=== PATIENT | male | born 1975 | race Caucasian/White ===

== ENCOUNTER → 2020-08-22 | Day surgery (SDC) | payer OTHER ==
[~2020-08-22] MED LIST: Bupivacaine 0.5% 30 ML SDV ONE; Dexamethasone 4 MG/ML 5 ML MDV ONE; Glycopyrrolate 0.2 MG/ML SDV ONE; Lactated Ringers 1,000 ML IV SCH; Lidocaine 1% 20 ML MDV ONE; Midazolam 1 MG/ML 2 ML SDV ONE; Ondansetron 4 MG/2 ML SDV ONE; Propofol 200 MG/20 ML SDV ONE; Sodium Chloride 0.9% 10 ML SDV IV PRN; Sodium Chloride 0.9% 10 ML Syringe FLUSH PRN; Sodium Chloride 0.9% 2.5 ML Syringe FLUSH PRN; ceFAZolin 2 GM in Premix Bag 1 BAG IV ONE; fentaNYL 100 MCG/2 ML SDV ONE
--- NOTE | 2020-08-22 08:28 | PCM.PREANE ---
Preanesthetic Assessment - Anesthesia/Transfusion/Family Hx Anesthesia History: Prior Anesthesia Without Reaction Family History of Anesthesia Reaction: No Transfusion History: No Prior Transfusion(s) - Review of Systems General: No Symptoms Pulmonary: No Symptoms Cardiovascular: No Symptoms Gastrointestinal: No Symptoms Neurological: No Symptoms Other: Reports: None - Physical Assessment NPO Status Date: 08/22/20 NPO Status Time: 00:05 Vital Signs: Last Vital Signs Temp 96.4 F L 08/22/20 07:52 Pulse 76 08/22/20 07:52 Resp 15 08/22/20 07:52 BP 124/85 08/22/20 07:52 Pulse Ox 97 08/22/20 07:52 Height: 6 ft 2 in Weight: 280 lb ASA Class: 2 Mental Status: Alert & Oriented x3 Airway Class: Mallampati = 2 Dentition: Reports: Normal Dentition ROM/Head Extension: Limited/Partial Lungs: Clear to Auscultation, Normal Respiratory Effort Cardiovascular: Regular Rate, Regular Rhythm - Lab Values: Laboratory Last Values SARS-CoV-2 RNA (RAFY) NEGATIVE (NEGATIVE) 08/22/20 06:55 - Allergies Allergies/Adverse Reactions: Allergies Allergy/AdvReac Type Severity Reaction Status Date / Time No Known Allergies Allergy Verified 08/16/20 10:27 - Anesthesia Plan Pre-Op Medication Ordered: None - Acknowledgements Anesthesia Type Planned: General Anesthesia Pt an Appropriate Candidate for the Planned Anesthesia: Yes Alternatives and Risks of Anesthesia Discussed w Pt/Guardian: Yes Pt/Guardian Understands and Agrees with Anesthesia Plan: Yes Additional Comments: no food today abt 12 oz apple juice 0630 barbara w cpap elodia depression tob chew tob only etoh occ obesity bmi 36 par no questions PreAnesthesia Questionnaire HEENT History: Reports: None Respiratory History: Reports: Sleep Apnea Other Respiratory History: uses CPAP every night Gastrointestinal History: Reports: GERD Musculoskeletal History: Reports: Back Pain, Chronic, Fracture Other Musculoskeletal History: hx of "cracked" right elbow as a child Neurological History: Reports: Concussion, Migraines Psychiatric History: Reports: Depression Endocrine/Metabolic History: Reports: Hypothyroidism, Obesity/BMI 30+ Dermatologic History: Reports: Other (See Below) Other Dermatologic History: currently has a rash on the back of his neck - Past Surgical History Head Surgeries/Procedures: Reports: None HEENT Surgical History: Reports: Oral Surgery Other HEENT Surgeries/Procedures: wisdom teeth removed - SUBSTANCE USE Tobacco Use Status *Q: Current Every Day Tobacco User Tobacco Use Within Last Twelve Months: Snuff/Dip Recreational Drug Use History: No - HOME MEDS Home Medications: Home Meds Cartilage/Collagen/Bor/Hyalur [Joint Health Tablet] 1 tab PO DAILY 08/16/20 [History] Escitalopram Oxalate [Lexapro] 40 mg PO BEDTIME 08/16/20 [History] Esomeprazole [NexIUM] 20 mg PO DAILY 08/16/20 [History] Fish Oil/[place]-3 Fatty Acids [Fish Oil 1,000 MG] 1 gm PO DAILY 08/16/20 [History] Levothyroxine Sodium [Levothyroxine] 100 mcg PO BEDTIME 08/16/20 [History] Mens Multivitamin 1 tab PO DAILY 08/16/20 [History] - CURRENT (IN HOUSE) MEDS Current Meds: Current Medications Lactated Ringer's (Ringers, Lactated) 1,000 mls @ 125 mls/hr IV ASDIRECTED DICK Last Admin: 08/22/20 08:00 Dose: 125 mls/hr Documented by: Sodium Chloride (Sodium Chloride 0.9% 2.5 Ml Syringe) 2.5 ml FLUSH ASDIRECTED PRN PRN Reason: Keep Vein Open Sodium Chloride (Sodium Chloride 0.9% 10 Ml Sdv) 10 ml IV ASDIRECTED PRN PRN Reason: IV Use Sodium Chloride (Sodium Chloride 0.9% 10 Ml Syringe) 10 ml FLUSH ASDIRECTED PRN PRN Reason: Keep Vein Open Discontinued Medications Dexamethasone (Dexamethasone 4 Mg/Ml 5 Ml Mdv) Confirm Administered Dose 20 mg .ROUTE .STK-MED ONE Stop: 08/22/20 07:41 Fentanyl (Fentanyl 100 Mcg/2 Ml Sdv) Confirm Administered Dose 100 mcg .ROUTE .STK-MED ONE Stop: 08/22/20 07:41 Cefazolin Sodium/Dextrose 2 gm (/ Premix) 50 mls @ 100 mls/hr IV ONETIME ONE Stop: 08/19/20 09:11 Midazolam HCl (Midazolam 1 Mg/Ml 2 Ml Sdv) Confirm Administered Dose 2 mg .ROUTE .STK-MED ONE Stop: 08/22/20 07:41 Ondansetron HCl (Ondansetron 4 Mg/2 Ml Sdv) Confirm Administered Dose 4 mg .ROUT E .STK-MED ONE Stop: 08/22/20 07:42 Propofol (Propofol 200 Mg/20 Ml Sdv) Confirm Administered Dose 200 mg .ROUTE .STK-MED ONE Stop: 08/22/20 07:41
--- NOTE | 2020-08-22 11:32 | PCM.OPNOTE ---
- General Post-Op/Procedure Note Date of Surgery/Procedure: 08/22/20 Operative Procedure(s): excision left lower leg posterior calf lipoma Findings: 7.6 x 6 x 2 cm lipoma just under the left knee overlying the proximal posterior calf Pre Op Diagnosis: Lower leg lipoma Post-Op Diagnosis: same Anesthesia Technique: General LMA Primary Surgeon: Deyanira Jackson Pathology: lipoma EBL in mLs: 10 Condition: Good
--- NOTE | 2020-08-22 12:00 | PCM.POSTAN ---
POST ANESTHESIA ASSESSMENT - MENTAL STATUS Mental Status: Alert, Oriented - VITAL SIGNS Vital Signs: Last Vital Signs Temp 98.4 F 08/22/20 11:23 Pulse 83 08/22/20 11:53 Resp 20 08/22/20 11:53 BP 116/72 08/22/20 11:53 Pulse Ox 95 08/22/20 11:53 - RESPIRATORY Respiratory Status: Respiratory Rate WNL, Airway Patent, O2 Saturation Stable - CARDIOVASCULAR CV Status: Pulse Rate WNL, Blood Pressure Stable - GASTROINTESTINAL GI Status: No Symptoms - POST OP HYDRATION Hydration Status: Adequate & Stable
--- NOTE | 2020-08-22 12:25 | PCM48HPAN ---
Post Anesthesia Note - EVALUATION WITHIN 48HRS OF ANESTHETIC Vital Signs in Normal Range: Yes Patient Participated in Evaluation: Yes Respiratory Function Stable: Yes Airway Patent: Yes Cardiovascular Function Stable: Yes Hydration Status Stable: Yes Pain Control Satisfactory: Yes Nausea and Vomiting Control Satisfactory: Yes Mental Status Recovered: Yes Vital Signs: Last Vital Signs Temp 98.4 F 08/22/20 11:23 Pulse 83 08/22/20 11:53 Resp 20 08/22/20 11:53 BP 116/72 08/22/20 11:53 Pulse Ox 95 08/22/20 11:53
--- NOTE | 2020-08-22 18:46 | OR ---
SURGEON: DEYANIRA JACKSON MD DATE OF PROCEDURE: 08/22/2020 PREOPERATIVE DIAGNOSIS: Left lower extremity lipoma. POSTOPERATIVE DIAGNOSIS: Left lower extremity lipoma. PROCEDURE PERFORMED: Excision of left lower leg lipoma. PRIMARY SURGEON: Deyanira Jackson MD ANESTHESIA: General LMA. FLUIDS: 700 mL crystalloid. ESTIMATED BLOOD LOSS: 10 mL. FINDINGS: 7.6 x 6 x 2 cm lipoma located on the left lower leg overlying the posterior proximal calf. COMPLICATIONS: None. INDICATIONS: The patient is a 44-year-old male with a slowly enlarging mass underneath his left knee. Imaging showed a large lipoma in this area. Given its size, I felt this would be best removed in the operating room. I explained the procedure, expected perioperative course, and the risks. The patient verbalized understanding and wishes to proceed. PROCEDURE IN DETAIL: The patient was brought into the OR and placed on the OR table in supine position. A time-out was completed verifying the patient's name, age, date of , allergies, and procedure to be performed. General LMA anesthesia was induced. The patient was then placed in a left lateral decubitus position and the left leg was then prepped and draped in usual standard fashion. I anesthetized the skin overlying the mass with a 1:1 mixture of 0.5% Marcaine plain and 1% lidocaine plain. A 6 cm incision was made using a 15 blade. Using electrocautery, I dissected down to the subcutaneous fat. I immediately encountered a large fatty lesion consistent with that of a lipoma. Using my finger, I created a plane between the lipoma and the tissue around it. It was then delivered through the incision. It was attached along the superior aspect of the incision to some of the surrounding fat. Using electrocautery, I this connection. The mass was then placed on the back table and measured. It measured 7.6 x 6 x 2 cm in size. It was sent to Pathology, labeled as left lower leg lipoma. I then inspected my operative field. It was irrigated with normal saline. Electrocautery was used to achieve hemostasis within the wound. I then closed the subcutaneous fat layer using interrupted layers of 3-0 Vicryl suture. The skin was then closed with horizontal mattress sutures using 2-0 Prolene. The wound was then covered in Xeroform, 4 x 4 gauze, and an Max wrap. The patient tolerated the procedure well, was extubated and taken to PACU in stable condition. NITA GONZALEZ /[id number]
== END | disposition home or self-care (01) ==
LOC: MW.SDS 07:44
PROVIDERS: ATTEND Surgery
DX: D17.24 Benign lipomatous neoplasm of skin and subcutaneous tissue of left leg (principal); G47.30 Sleep apnea, unspecified; E03.9 Hypothyroidism, unspecified; E66.9 Obesity, unspecified; F17.210 Nicotine dependence, cigarettes, uncomplicated; Z68.36 Body mass index [BMI] 36.0-36.9, adult; Z01.812 Encounter for preprocedural laboratory examination; Z20.822 Contact with and (suspected) exposure to COVID-19; Z98.890 Other specified postprocedural states; Z79.890 Hormone replacement therapy
CPT/HCPCS: 27632; 87635; J0690; J1100; J2250; J2405; J2704; J3010; J3490; J7120; 00400; U0002